=== PATIENT | female | born 1965 | race Caucasian/White ===

== ENCOUNTER → 2024-08-26 | Outpatient (CLI) | payer BC, SELFPAY ==
[2024-08-26 18:49] LABS: Amphetamine/Methamp Scrn,U Negative (Negative); Barbiturate Screen,Urine Negative (Negative); Benzodiazepines Screen,Urine Negative (Negative); Benzoylecgonine Screen, Ur Negative (Negative); Fentanyl Screen,Urine Negative (Negative); Opiate Screen,Urine Positive (Negative); THC Screen,Urine Negative (Negative)
== END | disposition home or self-care (01) ==
LOC: SLDO 17:24
PROVIDERS: PCP Family Medicine; Referring Provider Family Medicine; Visit Provider Family Medicine
DX: M54.2 Cervicalgia (principal); Z71.51 Drug abuse counseling and surveillance of drug abuser
CPT/HCPCS: 80307

== ENCOUNTER → 2025-01-06 | Outpatient (CLI) | payer BC, SELFPAY | END | disposition home or self-care (01) | LOC: SLDO 14:50 | PROVIDERS: PCP Student in an Organized Health Care Education/Training Program; Referring Provider Student in an Organized Health Care Education/Training Program; Visit Provider Student in an Organized Health Care Education/Training Program | DX: N39.0 Urinary tract infection, site not specified (principal) | CPT/HCPCS: 87077; 87086; 87186 ==

== ENCOUNTER → 2025-04-15 | Outpatient (CLI) | payer BC, SELFPAY ==
--- NOTE | 2025-04-15 14:45 | XR_ITS ---
Examination: MRI lumbar spine without contrast Date and time of exam: April 15, 2025, 1537 hours INDICATIONS: Lifting injury 2010 followed by low back pain Technique: Multiple MRI axial and sagittal sections lumbar spine. Sagittal T2-weighted images, TR 3500, TE 118 T1 weighted transverse sections, TR 688 T8.5, T2-weighted sagittal sections T1 weighted sagittal sections TR 621, TE 30 T2 axial sections, TR 4, 190, TE 84. Findings: Adequate alignment lumbar vertebral bodies No lumbar fracture Diffuse lumbar disc desiccation. Mild to moderate diffuse lumbar disc narrowing most prominent at L5-S1 No spondylolisthesis L5-S1 5 mm central lumbar disc bulge contiguous with the right and left S1 nerve roots L4-L5 2 mm central lumbar disc bulge L3-L4 2 mm central lumbar disc bulge L2-L3 6 mm right paracentral disc bulge indenting ventral right margin thecal sac IMPRESSION: L5-S1 5 mm central lumbar disc bulge contiguous with the right and left S1 nerve roots L4-L5, L3-L4 2 mm central lumbar disc bulge L2-L3 6 mm right paracentral disc bulge
== END | disposition home or self-care (01) ==
LOC: SMRI 14:43
PROVIDERS: PCP Internal Medicine
DX: M51.370 Other intervertebral disc degeneration, lumbosacral region with discogenic back pain only (principal); M51.360 Other intervertebral disc degeneration, lumbar region with discogenic back pain only
CPT/HCPCS: 72148